=== PATIENT | male | born 2000 | race Asian ===

== ENCOUNTER 2025-04-26 08:54 | Outpatient (CLI) | payer OTHER, SELFPAY ==
--- NOTE | 2025-04-26 09:00 | CRLHL7_ITS ---
For Patients: As a result of the Century Cures Act, medical imaging exams and procedure reports are released immediately into your electronic medical record. You may view this report before your referring provider. If you have questions, please contact your health care provider. EXAM: CT OF THE LEFT KNEE, WITHOUT CONTRAST CLINICAL INDICATION: Knee pain following recent injury. Assess tibial and fibular fractures. COMPARISON STUDIES: 04/21/2025 radiographs. TECHNICAL: Non-contrast CT of the knee with axial images. Sagittal oblique and coronal oblique reformatted images were created. FINDINGS: OSSEOUS STRUCTURES: Femur: No fracture. Tibia: Complex fracture of the proximal tibia in the region of the tibial spine lateral tibial plateau. No displacement at the cortical margin in the tibial spine region. Minimal displacement anteriorly in the lateral tibial plateau. There is a nondisplaced fracture fragment that extends from the medial margin of the tibial spine to the central aspect of the lateral tibial articular surface. The fragment measures 3.5 cm RL x 3.2 cm AP and extends up to 1.5 cm deep to the cortical margin and articular surface. The fragment receives the PCL and ACL insertions. There is an additional large fracture fragment involving the remaining lateral margin of the lateral tibial plateau articular surface that measures 3.9 cm AP x 1.4 cm RL and extends up to 2.3 cm distal to the articular surface. There is a 3rd smaller fracture fragment at the posterior and lateral margin of the tibial plateau and articular surface with the head of the fibula that measures 1.5 x 1.5 x 1.3 cm in size. Fibula: There is a comminuted fracture of the fibular head at the proximal tibiofibular articulation. Slight impaction of the central fracture fragment. Patella: No fracture. JOINT SPACE: Knee Joint: Moderate-size complex knee joint effusion. No popliteal cyst. No calcific loose body. Medial Compartment: No joint space narrowing, hypertrophic change or subchondral cystic change. Lateral Compartment: 0.2 cm of impaction at the anterior margin of the lateral tibial plateau fracture. No subchondral cystic change or subchondral sclerosis. Patellofemoral Compartment: No joint space narrowing, hypertrophic change or subchondral cystic change. EXTENSOR MECHANISM: Distal Quadriceps Tendon: No tear or tendinopathy. Patellar Tendon: No tear or tendinopathy. Patellar Retinaculum: Normal. Patellar Alignment: No tilt or subluxation. SOFT TISSUES: Posterior and lateral subcutaneous edema. No hematoma. MUSCLES AND TENDONS: No retracted tendon tear. No intramuscular hematoma or muscle atrophy. NEUROVASCULAR STRUCTURES: No abnormality of the visualized neurovascular structures. IMPRESSION: 1. Complex fracture of the proximal tibia with 3 main fracture fragments. The main fracture fragment involves the tibial spine region and adjacent lateral tibial plateau without displacement. The 2nd largest fragment involves the lateral margin of the lateral tibial plateau. The 3rd smaller fragment involves the posterolateral corner and articular region of the proximal tibiofibular joint. 2. Comminuted fracture of the fibular head. 3. Moderate-sized knee joint effusion. 4. Posterior and lateral subcutaneous edema. Please note that all CT scans at this facility use dose modulation, iterative reconstruction, and/or weight-based dosing when appropriate to reduce radiation dose to as low as reasonably achievable. Dictated by Larry Christina MD @ 04/26/2025 9:49:22 AM (Electronically Signed)
--- OUTSIDE RECORDS SUMMARY | 2025-04-26 09:20 | XMS_ITS | Clinical Summary ---
Author Organization [facility] Address [address] [place] [id number] Care Team Providers Care Senior Escrow Officer Name Role Phone Pcp, No Primary Care Provider Unavailabl e Allergies No known active allergies Medications No known medications Social History Tobacco Use Types Packs/Day Years Used Date Smoking Tobacco: Never Passive Smoke Exposure: Never Smokeless Tobacco: Never Tobacco Cessation:Counseling Given: Not Answered Comments:rarely Alcohol Use Standard Drinks/Week Comments Never 0 (1 standard drink = 0.6 oz pur e alcohol) PHQ-2 Answer Date Recorded PHQ-2 TOTAL SCORE 2 12/18/2022 Social Connections Answer Date Recorded Frequency of Communication with Friends and Fami ly Not on file 12/18/2022 Sex and Gender Information Value Date Recorded Sex Assigned at Not on file Legal 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 Gender Identity Not on file Sexual Orientation Not on file Obstetrics History Last Filed Vital Signs Vital Sign Reading Time Taken Comments Blood Pressure 118/80 12/18/2022 11:26 AM JOB COACHING Pulse 74 12/18/2022 11:26 AM JOB COACHING Temperature - - Respiratory Rate - - Oxygen Saturation 99% 12/18/2022 11:26 AM JOB COACHING Inhaled Oxygen Concentration - - Weight 78.3 kg (172 lb 9.6 oz) 12/18/2022 11:26 AM JOB COACHING Height 166.8 cm (5' 5.67) 12/18/2022 11:26 AM C Body Mass Index 28.14 12/18/2022 11:26 AM JOB COACHING Plan of Treatment Health Maintenance Due Date Last Done Comments Tdap 2013 HIV for age 15-65 2017 HPV series for age 9-26 (1 - Male 3-dose series) 2017 Hepatitis C screening for ag e 18-79 2020 Hepatitis B series for 19+ ( 1 of 3 - 19+ 3-dose series) 2021 Tetanus booster 2022 BMI (ht and wt on same day) for age 18+ 12/18/2023 12/18/2022 Depression screening for age 12+ 12/18/2023 12/18/19 COVID-19 vaccine series (2023- season) 2024 08/15/2022 Influenza Vaccine (Season Ended) 2025 Pneumococcal series for age 6-49 Aged Out No longer eligible based on patient's age to complete this topic Care Teams Senior Escrow Officer Relationship Specialty Start Date End Date Pcp, No . PCP - General 12/15/22
--- OUTSIDE RECORDS SUMMARY | 2025-04-27 00:39 | XMS_ITS | Clinical Summary ---
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 Gender Identity Not on file Sexual Orientation Not on file Obstetrics History Last Filed Vital Signs Vital Sign Reading Time Taken Comments Blood Pressure 118/80 12/18/2022 11:26 AM CFO Pulse 74 12/18/2022 11:26 AM CFO Temperature - - Respiratory Rate - - Oxygen Saturation 99% 12/18/2022 11:26 AM CFO Inhaled Oxygen Concentration - - Weight 78.3 kg (172 lb 9.6 oz) 12/18/2022 11:26 AM CFO Height 166.8 cm (5' 5.67) 12/18/2022 11:26 AM C Body Mass Index 28.14 12/18/2022 11:26 AM CFO Plan of Treatment Health Maintenance Due Date [...] age to complete this topic Care Teams Retirement Village Manager Relationship Specialty Start Date End Date Pcp, No . PCP - General 12/15/22
== END 2025-04-26 08:55 | disposition home or self-care (01) ==
PROVIDERS: Visit Provider Physician Assistant Surgical
DX: M25.562 Pain in left knee (principal); S82.102A Unspecified fracture of upper end of left tibia, initial encounter for closed fracture; S82.452A Displaced comminuted fracture of shaft of left fibula, initial encounter for closed fracture; M25.462 Effusion, left knee; S82.142A Displaced bicondylar fracture of left tibia, initial encounter for closed fracture; S89.92XA Unspecified injury of left lower leg, initial encounter
CPT/HCPCS: 73700